=== PATIENT | female | born 1965 ===

== ENCOUNTER 2017-06-14 12:13 | Emergency (ER) | payer OTHER ==
[2017-06-14 12:14] VITALS: BMI 29.0
[2017-06-14 12:34] VITALS: RESP 18; O2SAT 100
--- NOTE | 2017-06-14 12:46 | C.PDOC ---
History Of Present Illness 51 year old female presents to ED with 3 complaints including dysuria, low back pain and right knee pain. Patient reports for the past 3 days having dysuria and frequency and today noticed blood tinge. Patient states she has herniated disks and her job involves heavy lifting occasionally. She additionally has chronic right knee pain that sometimes swells up. Patient states she has gastritis and takes omeprazole and was told to avoid aspirin or NSAIDs. Denies any flank pain, vomiting, falls, numbness, weakness. Time Seen by Provider: 06/14/17 12:36 Chief Complaint (Nursing): Female Genitourinary History Per: Patient History/Exam Limitations: no limitations Onset/Duration Of Symptoms: Days Current Symptoms Are (Timing): Still Present Past Medical History Reviewed: Historical Data, Nursing Documentation, Vital Signs Vital Signs: Last Vital Signs Temp 97.6 F 06/14/17 12:30 Pulse 67 06/14/17 12:30 Resp 18 06/14/17 12:30 BP 98/63 L 06/14/17 12:30 Pulse Ox 100 06/14/17 13:08 - Medical History PMH: Gastritis Surgical History: No Surg Hx Family History: States: No Known Family Hx - Social History Hx Tobacco Use: No Hx Alcohol Use: No Hx Substance Use: No - Immunization History Hx Tetanus Toxoid Vaccination: No Hx Influenza Vaccination: No Hx Pneumococcal Vaccination: No Review Of Systems Constitutional: Negative for: Fever, Chills Genitourinary: Positive for: Dysuria. Negative for: Hematuria, Vaginal Discharge, Vaginal Bleeding Musculoskeletal: Positive for: Back Pain, Leg Pain Skin: Negative for: Rash Neurological: Negative for: Weakness, Numbness Physical Exam - Physical Exam Appears: Non-toxic, No Acute Distress Skin: Normal Color, Warm, Dry, No Rash Head: Atraumatic, Normacephalic Eye(s): bilateral: Normal Inspection Oral Mucosa: Moist Neck: Supple Chest: Symmetrical Cardiovascular: Rhythm Regular Respiratory: Normal Breath Sounds, No Rales, No Rhonchi, No Wheezing Gastrointestinal/Abdominal: Soft, No Tenderness, No Guarding, No Rebound Extremity: Tenderness (Right anterior knee tender to palpation ), Capillary Refill (<2 seconds), No Deformity, No Swelling Extremity: Bilateral: Normal ROM Pulses: Left Dorsalis Pedis: Normal, Right Dorsalis Pedis: Normal Neurological/Psych: Oriented x3, Normal Motor, Normal Sensation Gait: Steady ED Course And Treatment O2 Sat by Pulse Oximetry: 100 (RA) Pulse Ox Interpretation: Normal Medical Decision Making Medical Decision Making: Impression: dysuria, chronic back and knee pain Plan: Toradol IM, Urine sent to lab for analysis and culture Progress: UA reviewed with LE and few WBC. Patient symptomatic will treat with Bactrim RE-Eval: Patient has no fever and in no distress. She reports pain is improved. Patient feels comfortable going home and will be discharged. REcommend NSAIDs when knee or back pain is severe and to take her gastritis meds. Otherwise can take Tylenol. Patient given follow up instructions. Instructed to return to ER if symptoms worsen or new symptoms arise. Disposition Counseled Patient/Family Regarding: Diagnosis, Need For Followup, Rx Given - Disposition Referrals: [facility] [Outside] [facility] [Outside] Disposition: HOME/ ROUTINE Disposition Time: 13:48 Condition: GOOD Additional Instructions: Vaya a sheets mdico o la clnica en 2-5 meza sin falta, para mas evaluacin. [place] los medicamentos kimber indicado. Volver a la beto de emergencia en cualquier momento si los sntomas persisten o empeoran. Prescriptions: Naproxen [Naprosyn] 1 tab PO BID PRN #25 tab PRN Reason: Pain Sulfamethoxazole/Trimethoprim [Bactrim DS 800 mg-160 mg] 1 tab PO BID #10 tab Instructions: Urinary Tract Infection in Women (DC), Arthralgia (ED) Forms: [employer] (Bahraini) Print Language: CITIZEN OF [place] - POA Present On Arrival: None - Clinical Impression Clinical Impression: Knee pain, Low back pain, UTI (urinary tract infection) - PA / BUTCHER SCULLION / Resident Statement MD/DO has reviewed & agrees with the documentation as recorded. - Scribe Statement The provider has reviewed the documentation as recorded by the Arun Connors All medical record entries made by the Arun were at my direction and personally dictated by me. I have reviewed the chart and agree that the record accurately reflects my personal performance of the history, physical exam, medical decision making, and the department course for this patient. I have also personally directed, reviewed, and agree with the discharge instructions and disposition.
[2017-06-14 13:24] LABS: RBC URINE < 1 /hpf (0-3); URINE BILIRUBIN NEGATIVE (NEGATIVE); URINE BLOOD NEGATIVE (NEGATIVE); URINE COLOR Yellow (YELLOW); URINE GLUCOSE (UA) NORMAL (Normal); URINE KETONE NEGATIVE (NEGATIVE); URINE LEUKOCYTE ESTERASE 1+ Leu/uL (Negative); URINE PROTEIN NEGATIVE (NEGATIVE); URINE UROBILINOGEN NORMAL mg/dL (0.2-1.0); WBC URINE 2 /hpf (0-5)
[2017-06-14] MEDS ORDERED: Tmp-Smz 800 mg-160 mg DS Tab PO STA (13:39)
[2017-06-14] MEDS ORDERED: Tmp-Smz 800 mg-160 mg DS Tab ONE (13:45)
[2017-06-14 14:09] VITALS: BP 103/70; PULSE 64; TEMP 97.5
== END 2017-06-14 14:09 | disposition home or self-care (01) ==
LOC: C.ER 12:13
DX: N39.0 Urinary tract infection, site not specified (principal); M54.5 Low back pain; M25.561 Pain in right knee
CPT/HCPCS: 81001; 87086; 96372; 99285; J1885

== ENCOUNTER 2017-08-06 19:37 | Emergency (ER) | payer SELFPAY ==
[2017-08-06 19:37] VITALS: BMI 29.0
[2017-08-06 20:14] VITALS: RESP 18; O2SAT 99
--- NOTE | 2017-08-06 20:32 | C.PDOC ---
History Of Present Illness 51 yr old female presents to the ER with complaints of sore throat, fever, headache, body aches and mild cough for 1 day. Admits did not get samuel flu shot this year. Denies chest pain, SOB, nausea, vomiting, weakness or numbnes. Time Seen by Provider: 08/06/17 20:25 Chief Complaint (Nursing): Flu-like Symptoms History Per: Patient History/Exam Limitations: no limitations Onset/Duration Of Symptoms: Days (1) Current Symptoms Are (Timing): Still Present Past Medical History Reviewed: Historical Data, Nursing Documentation, Vital Signs Vital Signs: Last Vital Signs Temp 99.4 F 08/06/17 21:40 Pulse 88 08/06/17 21:40 Resp 18 08/06/17 21:40 BP 125/74 08/06/17 21:40 Pulse Ox 99 08/06/17 21:40 - Medical History PMH: Gastritis, Hypercholesterolemia Family History: States: No Known Family Hx - Social History Hx Tobacco Use: No Hx Alcohol Use: No Hx Substance Use: No - Immunization History Hx Tetanus Toxoid Vaccination: No Hx Influenza Vaccination: No Hx Pneumococcal Vaccination: No Review Of Systems Except As Marked, All Systems Reviewed And Found Negative. Constitutional: Positive for: Fever (subjective), Other ((+) body aches) ENT: Positive for: Throat Pain (sore throat) Cardiovascular: Negative for: Chest Pain Respiratory: Positive for: Cough (mild). Negative for: Shortness of Breath Gastrointestinal: Negative for: Nausea, Vomiting Neurological: Positive for: Headache. Negative for: Weakness, Numbness Physical Exam - Physical Exam Appears: Non-toxic, No Acute Distress Skin: Warm, Dry, No Rash Eye(s): bilateral: Normal Inspection, PERRL, EOMI Oral Mucosa: Moist Lips: Normal Appearing Throat: Erythema, No Exudate Neck: Normal, Normal ROM, Supple Chest: Symmetrical, No Tenderness Cardiovascular: Rhythm Regular, No Murmur Respiratory: Normal Breath Sounds, No Rales, No Rhonchi, No Stridor, No Wheezing Extremity: Normal ROM, No Swelling Neurological/Psych: Oriented x3, Normal Speech, Normal Motor ED Course And Treatment O2 Sat by Pulse Oximetry: 99 (RA) Pulse Ox Interpretation: Normal Medical Decision Making Medical Decision Making: PLAN: * Tamiflu PO * Tylenol PO high clinical suspciion for influenza. will treat. upon reassesment, fever resolved, hr normalized, lungs clear, sleeping in nad. stable for outpt management. Disposition - Disposition Referrals: [facility] [Outside] [facility] [Outside] Disposition: HOME/ ROUTINE Disposition Time: 21:33 Condition: STABLE Additional Instructions: please follow up with your doctor. return to er with worsening symptoms or concenrs Prescriptions: Oseltamivir Phosphate [Tamiflu] 75 mg PO BID #10 capsule Instructions: Influenza (ED), Viral Syndrome (ED) Forms: [employer] (Czech) - Clinical Impression Clinical Impression: Influenza-like illness - Scribe Statement The provider has reviewed the documentation as recorded by the Scribe Litzy Mckeon Provider Attestation: All medical record entries made by the Scribe were at my direction and personally dictated by me. I have reviewed the chart and agree that the record accurately reflects my personal performance of the history, physical exam, medical decision making, and the department course for this patient. I have also personally directed, reviewed, and agree with the discharge instructions and disposition.
[2017-08-06 21:41] VITALS: BP 125/74; PULSE 88; TEMP 99.4
== END 2017-08-06 21:40 | disposition home or self-care (01) ==
LOC: C.ER 19:37
DX: J11.1 Influenza due to unidentified influenza virus with other respiratory manifestations (principal)

== ENCOUNTER 2017-08-10 11:24 | Emergency (ER) | payer SELFPAY ==
[2017-08-10 11:35] VITALS: BMI 30.7
[2017-08-10 11:38] VITALS: RESP 18; O2SAT 100
[2017-08-10] MEDS ORDERED: Sodium Chloride 0.9% 1,000 ML IV ONE (14:27)
[2017-08-10] MEDS ORDERED: Acetaminophen 650mg/20.3ml solution UD PO STA (14:27)
--- NOTE | 2017-08-10 14:30 | C.PDOC ---
History Of Present Illness 51yo female, presents to ED with complaints of left flank and left lower quadrant pain since the past 4 days. She denies any fever, chills, dysuria or hematuria. She has been on Tamiflu for flu like symptoms since 4 days ago. She denies any chest pain, shortness of breath and offers no other medical complaints. Time Seen by Provider: 08/10/17 14:06 Chief Complaint (Nursing): Fever History Per: Patient History/Exam Limitations: no limitations Onset/Duration Of Symptoms: Days Current Symptoms Are (Timing): Still Present Past Medical History Reviewed: Historical Data, Nursing Documentation, Vital Signs Vital Signs: Last Vital Signs Temp 98.1 F 08/10/17 16:24 Pulse 57 L 08/10/17 16:24 Resp 18 08/10/17 16:24 BP 118/78 08/10/17 16:24 Pulse Ox 100 08/10/17 16:25 - Medical History PMH: Gastritis, Hypercholesterolemia Surgical History: No Surg Hx Family History: States: No Known Family Hx - Social History Hx Tobacco Use: No Hx Alcohol Use: No Hx Substance Use: No - Immunization History Hx Tetanus Toxoid Vaccination: No Hx Influenza Vaccination: No Hx Pneumococcal Vaccination: No Review Of Systems Except As Marked, All Systems Reviewed And Found Negative. Constitutional: Negative for: Fever, Chills Cardiovascular: Negative for: Chest Pain Respiratory: Negative for: Shortness of Breath Gastrointestinal: Positive for: Abdominal Pain (left lower quadrant pain), Other (left flank pain) Physical Exam - Physical Exam Appears: Non-toxic, No Acute Distress Skin: Normal Color, Warm Eye(s): bilateral: Normal Inspection Neck: Normal ROM, Supple Chest: Symmetrical Cardiovascular: Rhythm Regular Respiratory: Normal Breath Sounds Gastrointestinal/Abdominal: Soft, Tenderness (mild left flank tenderness) Back: Normal Inspection, No CVA Tenderness Extremity: Normal ROM Neurological/Psych: Oriented x3, Normal Speech, Normal Cognition ED Course And Treatment - Laboratory Results Result Diagrams: 08/10/17 14:49 08/10/17 14:49 O2 Sat by Pulse Oximetry: 100 (RA) Pulse Ox Interpretation: Normal Medical Decision Making Medical Decision Making: Impression: Left flank and left lower quadrant pain ro uti/pyelo renal stone Plan: -- Labs -- CT Abdomen w/ PO & IV Contrast -- IV Fluids -- Tylenol 975mg PO -- Labs 530: labs imaging neg pain improve.d pt stable for dc outpt f/u. return precautions advised. Disposition - Disposition Referrals: [facility] [Outside] [facility] [Outside] Izaiah Rhodes MD [Staff Provider] - Disposition: HOME/ ROUTINE Disposition Time: 16:24 Condition: STABLE Additional Instructions: please follow up with your doctor/specialist. return to er with worsening symptoms or concerns. Instructions: Acute Abdominal Pain (DC), Flank Pain (ED) Forms: [employer] (Lithuanian) Print Language: JAPANESE - Clinical Impression Clinical Impression: Flank pain - Scribe Statement The provider has reviewed the documentation as recorded by the Scribe (Berenice Rivera) Provider Attestation: All medical record entries made by the Scribe were at my direction and personally dictated by me. I have reviewed the chart and agree that the record accurately reflects my personal performance of the history, physical exam, medical decision making, and the department course for this patient. I have also personally directed, reviewed, and agree with the discharge instructions and disposition.
[2017-08-10 14:53] LABS: BASO % 0.4 % (0.0-2.0); EOS % 0.4 % (0.0-4.0); LYMPH # 1.9 K/uL (1.0-4.3); LYMPH % 67.8 % (20.0-40.0); MEAN CELL VOLUME 95.2 fL (81.0-99.0); MEAN CORPUSCULAR HEMOGLOBIN 32.3 pg (27.0-31.0); MEAN PLATELET VOLUME 9.5 fL (7.2-11.7); MONO # 0.2 K/uL (0.0-0.8); MONO % 7.1 % (0.0-10.0); NEUT # 0.7 K/uL (1.8-7.0); NEUT % 24.3 % (50.0-75.0); NRBC % 0.1 % (0.0-2.0); RBC 4.01 Mil/uL (3.80-5.20); RED CELL DISTRIBUTION WIDTH 12.4 % (11.5-14.5); WHITE BLOOD COUNT 2.8 K/uL (4.8-10.8)
[2017-08-10] MEDS ORDERED: Sodium Chloride 0.9% 1,000 ML ONE (14:59)
[2017-08-10 15:21] LABS: HCG,QUALITATIVE URINE NEGATIVE (NEGATIVE)
[2017-08-10 15:25] LABS: SQUAMOUS EPITHIAL 3 /hpf (0-5); URINE BILIRUBIN NEGATIVE (NEGATIVE); URINE BLOOD NEGATIVE (NEGATIVE); URINE CLARITY Clear (Clear); URINE COLOR Yellow (YELLOW); URINE GLUCOSE (UA) NORMAL (Normal); URINE LEUKOCYTE ESTERASE NEG Leu/uL (Negative); URINE NITRATE NEGATIVE (NEGATIVE); URINE PROTEIN NEGATIVE (NEGATIVE); URINE UROBILINOGEN NORMAL mg/dL (0.2-1.0)
[2017-08-10 15:27] LABS: ALB/GLOB RATIO 1.1 (1.0-2.1); ALBUMIN 3.4 g/dL (3.5-5.0); ALT/SGPT 47 U/L (9-52); AST/SGOT 36 U/L (14-36); BLOOD UREA NITROGEN 15 mg/dL (7-17); CALCIUM 8.2 mg/dl (8.6-10.4); GFR AFRICAN-AMERICAN > 60; GFR NON-AFRICAN AMERICAN > 60; LIPASE 180 U/L (23-300)
--- NOTE | 2017-08-10 16:20 | CT ---
PROCEDURE: CT Abdomen and Pelvis without intravenous contrast HISTORY: left flank pain COMPARISON: None. TECHNIQUE: Technique. Contrast Dose: None Radiation dose: Total exam DLP = 553 mGy-cm. This CT exam was performed using one or more of the following dose reduction techniques: Automated exposure control, adjustment of the mA and/or kV according to patient size, and/or use of iterative reconstruction technique. FINDINGS: LOWER THORAX: Unremarkable. LIVER: Unremarkable. No gross lesion or ductal dilatation. GALLBLADDER AND BILE DUCTS: Unremarkable. PANCREAS: Unremarkable. No gross lesion or ductal dilatation. SPLEEN: Unremarkable. ADRENALS: Unremarkable. No mass. KIDNEYS AND URETERS: Unremarkable. No hydronephrosis. No solid mass. VASCULATURE: Left hemipelvic phleboliths this is posterior to the distal left ureter. No aortic aneurysm. BOWEL: Stool retention. No obstruction. No gross mural thickening. APPENDIX: Appendix not identified with certainty. No pericecal inflammatory changes noted PERITONEUM: Unremarkable. No free fluid. No free air. LYMPH NODES: Unremarkable. No enlarged lymph nodes. BLADDER: Unremarkable. REPRODUCTIVE: Unremarkable. BONES: Extensive ossification calcifications bordering each greater trochanter left more than right . An old left osseous avulsion injury and or left myositis ossifications. -superior to the left greater trochanter possible Inferior lumbar facet hypertrophic arthrosis OTHER FINDINGS: None. IMPRESSION: No hydronephrosis or significant appearing hydroureter. No urolithiasis appreciated. Left hemipelvic phleboliths posterior to the distal left ureter Chronic osseous changes bordering each trochanter. No acute fracture or acute lytic lesions. Bilateral hip arthrosis in bilateral inferior lumbar facet arthrosis
[2017-08-10 16:26] VITALS: BP 118/78; PULSE 57; TEMP 98.1
== END 2017-08-10 16:36 | disposition home or self-care (01) ==
LOC: C.ER 11:24
DX: R10.32 Left lower quadrant pain (principal)
CPT/HCPCS: 74176; 80053; 81001; 83690; 84703; 85025; 85610; 85730; 96360; 99285; J7040